=== PATIENT | female | born 1970 | race Hispanic/Latino ===

== ENCOUNTER 2017-07-21 01:23 | Inpatient (IN) | payer MEDICARE ==
[~2017-07-21] VITALS: Ht 152.4 cm; Wt 77.7 kg
[~2017-07-21 01:23] MED LIST: AMLO5TAB2 PO; CARV25TA PO; CLONIDINE PO; CYCL10TA7 PO; GLIP10TA9 PO; LORA0.5T2 PO; TRAM50TA4 PO; ZOLP10TA6 PO
[2017-07-21 01:49] LABS: BASOPHILS % (AUTO) 0.9 % (0.0-5.0); EOSINOPHILS % (AUTO) 4.7 % (0.0-8.0); HEMATOCRIT 21.4 % (36-48); MEAN CORPUSCULAR HEMOGLOBIN 35.4 pg (27.0-33.0); MEAN CORPUSCULAR HGB CONC 34.5 g/dL (32.0-36.0); MEAN CORPUSCULAR VOLUME 102.6 fL (79-99); MONOCYTES % (AUTO) 9.7 % (3.0-13.0); NEUTROPHILS % (AUTO) 69.7 % (40.0-77.0); NUCLEATED RED BLOOD CELLS 0.1 % (0.0-0.19); PLATELET COUNT (AUTO) 151 K/uL (130-400); RED BLOOD CELL COUNT(AUTO) 2.09 MIL/uL (4.00-5.50); RED CELL DISTRIBUTION WIDTH 15.7 % (11.0-15.5); WHITE BLOOD COUNT (AUTO) 9.3 K/uL (4.8-10.8)
[2017-07-21 02:02] LABS: INR 1.16 (0.85-1.15); PARTIAL THROMBOPLASTIN TIME 25.4 SEC (26.3-35.5); PROTHROMBIN TIME 12.1 SEC (9.6-11.6)
[2017-07-21 02:15] LABS: ALBUMIN 3.1 g/dL (3.5-5.0); BILIRUBIN,TOTAL 0.6 mg/dL (0.2-1.0); CREATININE 6.6 mg/dL (0.5-1.5); POTASSIUM 5.3 mmol/L (3.5-5.1); TOTAL PROTEIN, SERUM 6.8 g/dL (6.0-8.3)
[2017-07-21] MEDS ORDERED: DILTIAZEM HCL 60 MG TABLET ONE (03:12)
[2017-07-21] MEDS ORDERED: SODIUM CHLORIDE 0.9% 100 ML IV ONE ×2 (04:10→15:35)
[2017-07-21] MEDS ORDERED: SODIUM CHLORIDE 0.9% 50 ML IV ONE (04:11)
[2017-07-21] MEDS ORDERED: ACETAMINOPHEN EXTRA STRENGTH 500 MG TABLET ONE ×2 (04:27→04:29)
[2017-07-21 11:09] LABS: CREATINE KINASE MB 2.6 ng/mL (0.5-3.6); CREATINE KINASE, TOTAL 64 U/L (21-232); MYOGLOBIN 250 ng/mL (10-92); TROPONIN I < 0.04 ng/mL (0.00-0.06)
[2017-07-21] MEDS ORDERED: ACETAMINOPHEN 325 MG TAB ONE (11:31)
[2017-07-21 14:25] LABS: MEAN CORPUSCULAR HEMOGLOBIN 36.4 pg (27.0-33.0); MEAN CORPUSCULAR HGB CONC 35.4 g/dL (32.0-36.0); MEAN CORPUSCULAR VOLUME 102.9 fL (79-99); PLATELET COUNT (AUTO) 161 K/uL (130-400); RED BLOOD CELL COUNT(AUTO) 1.97 MIL/uL (4.00-5.50); RED CELL DISTRIBUTION WIDTH 16.5 % (11.0-15.5); WHITE BLOOD COUNT (AUTO) 9.1 K/uL (4.8-10.8)
[2017-07-21 14:36] LABS: HEMATOCRIT 20.3 % (36-48)
[2017-07-21 14:54] LABS: BASOPHILS % (MANUAL) 1 % (0-2); EOSINOPHILS % (MANUAL) 6 % (1-6); LYMPHOCYTES % (MANUAL) 18 % (22-44); MONOCYTES % (MANUAL) 4 % (2-9); PLATELET MORPHOLOGY COMMENT ADEQUATE; REACTIVE LYMPHOCYTES 2 % (0-0); SEGMENTED NEUTROPHILS % 69 % (40-70)
[2017-07-21 16:53] LABS: MEAN CORPUSCULAR HGB CONC 35.6 g/dL (32.0-36.0); MEAN CORPUSCULAR VOLUME 101.1 fL (79-99); PLATELET COUNT (AUTO) 153 K/uL (130-400); RED BLOOD CELL COUNT(AUTO) 1.74 MIL/uL (4.00-5.50); RED CELL DISTRIBUTION WIDTH 15.8 % (11.0-15.5); WHITE BLOOD COUNT (AUTO) 8.5 K/uL (4.8-10.8)
[2017-07-21 16:55] LABS: HEMATOCRIT 17.6 % (36-48)
[2017-07-21 17:09] LABS: BASOPHILS % (MANUAL) 1 % (0-2); EOSINOPHILS % (MANUAL) 4 % (1-6); LYMPHOCYTES % (MANUAL) 17 % (22-44); MONOCYTES % (MANUAL) 8 % (2-9); PLATELET MORPHOLOGY COMMENT ADEQUATE; SEGMENTED NEUTROPHILS % 70 % (40-70)
[2017-07-21] MEDS ORDERED: SODIUM CHLORIDE 0.9% 1000ML 1,000 ML IV ONE (18:07)
[2017-07-21 19:10] LABS: CREATINE KINASE MB 3.1 ng/mL (0.5-3.6); CREATINE KINASE, TOTAL 64 U/L (21-232); MYOGLOBIN 236 ng/mL (10-92); TROPONIN I < 0.04 ng/mL (0.00-0.06)
[2017-07-21] MEDS ORDERED: PANTOPRAZOLE SODIUM 40 MG TABLET.DR PO SCH (21:00)
[2017-07-21 22:36] VITALS: BP 158/83
[2017-07-22] VITALS (7 sets, daily range): BP systolic 132–203; BP diastolic 77–88
[2017-07-22] MEDS ORDERED: SODIUM CHLORIDE 0.9% 100 ML IV ONE (02:41)
[2017-07-22] MEDS: PANTOPRAZOLE SODIUM 80 MG in SODIUM CHLORIDE 0.9% 100 ML IV SCH ×2 (02:57→16:10)
[2017-07-22 05:02] LABS: HEMATOCRIT 24.7 % (36-48); MEAN CORPUSCULAR HEMOGLOBIN 33.5 pg (27.0-33.0); MEAN CORPUSCULAR HGB CONC 34.8 g/dL (32.0-36.0); MEAN CORPUSCULAR VOLUME 96.4 fL (79-99); NUCLEATED RED BLOOD CELLS 0.1 % (0.0-0.19); PLATELET COUNT (AUTO) 155 K/uL (130-400); RED BLOOD CELL COUNT(AUTO) 2.56 MIL/uL (4.00-5.50); WHITE BLOOD COUNT (AUTO) 7.6 K/uL (4.8-10.8)
[2017-07-22 05:29] LABS: INR 1.13 (0.85-1.15); PARTIAL THROMBOPLASTIN TIME 23.8 SEC (26.3-35.5); PROTHROMBIN TIME 11.8 SEC (9.6-11.6)
[2017-07-22 06:01] LABS: ALANINE AMINOTRANSFERASE 21 U/L (12-78); ASPARTATE AMINOTRANSFERASE 22 U/L (10-37); BILIRUBIN,TOTAL 0.6 mg/dL (0.2-1.0); CARBON DIOXIDE 30 mmol/L (21-32); CHLORIDE 100 mmol/L (101-111); CREATINE KINASE MB 2.8 ng/mL (0.5-3.6); CREATINE KINASE, TOTAL 55 U/L (21-232); CREATININE 4.5 mg/dL (0.5-1.5); GLOMERULAR FILTR. RATE CALC 11 mL/min (>60); GLUCOSE,RANDOM 175 mg/dL (70-105); MYOGLOBIN 230 ng/mL (10-92); POTASSIUM 4.1 mmol/L (3.5-5.1); SODIUM SERUM 140 mmol/L (136-145); TOTAL PROTEIN, SERUM 6.6 g/dL (6.0-8.3); TROPONIN I < 0.04 ng/mL (0.00-0.06); UREA NITROGEN, BLOOD 41 mg/dL (7-18)
[2017-07-22] MEDS ORDERED: LORAZEPAM 0.5 MG TABLET PO PRN (11:00)
[2017-07-22] MEDS ORDERED: TRAM-355 PO (11:10)
[2017-07-22] MEDS ORDERED: LORA0.5T2 PO (11:10)
[2017-07-22] MEDS ORDERED: CARV25TA PO (11:10)
[2017-07-22] MEDS ORDERED: HYDR-4153 PO (11:10)
[2017-07-22] MEDS ORDERED: GLIP5TAB11 PO (11:10)
[2017-07-22] MEDS ORDERED: PROM25TA7 PO (11:10)
[2017-07-22] MEDS ORDERED: SEVE800T7 PO (11:10)
[2017-07-22] MEDS ORDERED: APIX2.5T PO (11:10)
[2017-07-22] MEDS ORDERED: DILT360C30 PO (11:10)
[2017-07-22] MEDS ORDERED: ATOR40TA69 PO (11:10)
[2017-07-22] MEDS ORDERED: ZOLP10TA6 PO (11:10)
[2017-07-22] MEDS: SEVELAMER HCL 800 MG TABLET PO SCH ×2 (12:04→16:10)
[2017-07-22] MEDS: PROMETHAZINE HCL 25 MG TABLET PO PRN (12:04)
[2017-07-22] MEDS: HYDRALAZINE HCL 25 MG TABLET PO SCH ×2 (13:47→19:58)
[2017-07-22] MEDS: ATORVASTATIN CALCIUM 40 MG TABLET PO SCH (19:57)
[2017-07-22] MEDS: ZOLPIDEM TARTRATE 5 MG TAB PO SCH (19:57)
[2017-07-22] MEDS: CARVEDILOL 25 MG TABLET PO SCH (19:58)
[2017-07-22] MEDS ORDERED: APIXABAN 2.5 MG TABLET PO SCH (21:00)
[2017-07-23] VITALS (21 sets, daily range): BP systolic 110–159; BP diastolic 55–84
[2017-07-23] MEDS ORDERED: PROPOFOL 10 MG/ML 20ML VIAL IV ONE (08:49)
[2017-07-23] MEDS: SEVELAMER HCL 800 MG TABLET PO SCH ×3 (10:51→17:54)
[2017-07-23] MEDS: DILTIAZEM HCL 180 MG CAP.SR.24H PO SCH (10:52)
[2017-07-23] MEDS: CARVEDILOL 25 MG TABLET PO SCH ×2 (10:52→21:06)
[2017-07-23] MEDS: GLIPIZIDE 5 MG TABLET PO SCH (10:53)
[2017-07-23] MEDS: PANTOPRAZOLE SODIUM 40 MG TABLET.DR PO SCH ×2 (10:55→21:05)
[2017-07-23] MEDS: HYDRALAZINE HCL 25 MG TABLET PO SCH ×3 (10:58→21:05)
[2017-07-23] MEDS: PROMETHAZINE HCL 25 MG TABLET PO PRN (16:58)
[2017-07-23] MEDS: ATORVASTATIN CALCIUM 40 MG TABLET PO SCH (21:04)
[2017-07-23] MEDS: ZOLPIDEM TARTRATE 5 MG TAB PO SCH (21:05)
[2017-07-23] MEDS ORDERED: DEXTROSE 50%-WATER 50 ML DISP.SYRIN IV PRN (21:15)
[2017-07-23] MEDS ORDERED: GLUCAGON 1MG KIT 1 MG ML IM PRN (21:15)
[2017-07-24] VITALS (7 sets, daily range): BP systolic 105–163; BP diastolic 56–77
[2017-07-24 05:30] LABS: HEMATOCRIT 23.5 % (36-48); MEAN CORPUSCULAR HEMOGLOBIN 33.6 pg (27.0-33.0); MEAN CORPUSCULAR HGB CONC 34.2 g/dL (32.0-36.0); PLATELET COUNT (AUTO) 168 K/uL (130-400); RED CELL DISTRIBUTION WIDTH 18.1 % (11.0-15.5); WHITE BLOOD COUNT (AUTO) 7.8 K/uL (4.8-10.8)
[2017-07-24 05:42] LABS: MAGNESIUM 2.2 mg/dL (1.80-2.40); POTASSIUM 5.1 mmol/L (3.5-5.1)
[2017-07-24 05:48] LABS: CREATININE 8.3 mg/dL (0.5-1.5)
[2017-07-24] MEDS: INSULIN HUMULIN R 100 UNIT/ML 3ML SQ SCH ×4 (06:53→20:29)
[2017-07-24] MEDS: PANTOPRAZOLE SODIUM 40 MG TABLET.DR PO SCH ×2 (08:35→20:20)
[2017-07-24] MEDS: SEVELAMER HCL 800 MG TABLET PO SCH ×3 (08:35→17:29)
[2017-07-24] MEDS: GLIPIZIDE 5 MG TABLET PO SCH (08:36)
[2017-07-24] MEDS: HYDRALAZINE HCL 25 MG TABLET PO SCH ×3 (08:37→20:27)
[2017-07-24] MEDS: CARVEDILOL 25 MG TABLET PO SCH ×2 (08:37→20:21)
[2017-07-24] MEDS: DILTIAZEM HCL 180 MG CAP.SR.24H PO SCH (08:39)
[2017-07-24] MEDS ORDERED: ALBUMIN (HUMAN) 25% 100 ML IV PRN (15:30)
[2017-07-24] MEDS ORDERED: SODIUM CHLORIDE 0.9% 1000ML 1,000 ML IV PRN (15:30)
[2017-07-24] MEDS ORDERED: HEPARIN SODIUM 5000UNIT/ML 1ML VIAL IJ PRN (15:30)
[2017-07-24] MEDS ORDERED: 0.9% SODIUM CHLORIDE 250 ML IV BAG IV PRN (15:30)
[2017-07-24] MEDS: ATORVASTATIN CALCIUM 40 MG TABLET PO SCH (20:20)
[2017-07-24] MEDS: ZOLPIDEM TARTRATE 5 MG TAB PO SCH (20:20)
[2017-07-25 04:00] VITALS: BP 130/72
[2017-07-25 04:11] LABS: HEMATOCRIT 22.2 % (36-48); MEAN CORPUSCULAR HEMOGLOBIN 33.6 pg (27.0-33.0); MEAN CORPUSCULAR HGB CONC 33.9 g/dL (32.0-36.0); MEAN CORPUSCULAR VOLUME 98.9 fL (79-99); NUCLEATED RED BLOOD CELLS 0.1 % (0.0-0.19); PLATELET COUNT (AUTO) 147 K/uL (130-400); RED BLOOD CELL COUNT(AUTO) 2.24 MIL/uL (4.00-5.50); RED CELL DISTRIBUTION WIDTH 18.4 % (11.0-15.5); WHITE BLOOD COUNT (AUTO) 7.1 K/uL (4.8-10.8)
[2017-07-25] MEDS: INSULIN HUMULIN R 100 UNIT/ML 3ML SQ SCH ×4 (06:33→20:43)
[2017-07-25 08:03] VITALS: BP 128/63
[2017-07-25] MEDS: SEVELAMER HCL 800 MG TABLET PO SCH ×3 (08:30→16:56)
[2017-07-25] MEDS: PANTOPRAZOLE SODIUM 40 MG TABLET.DR PO SCH ×2 (08:31→20:41)
[2017-07-25] MEDS: CARVEDILOL 25 MG TABLET PO SCH ×2 (08:31→20:42)
[2017-07-25] MEDS: HYDRALAZINE HCL 25 MG TABLET PO SCH ×3 (08:31→20:42)
[2017-07-25] MEDS: DILTIAZEM HCL 180 MG CAP.SR.24H PO SCH (08:32)
[2017-07-25] MEDS: GLIPIZIDE 5 MG TABLET PO SCH (08:32)
[2017-07-25] MEDS: TRAMADOL /APAP 37.5MG/325MG TAB PO PRN ×2 (11:10→23:05)
[2017-07-25 11:39] VITALS: BP 144/61
[2017-07-25] MEDS ORDERED: VANCOMYCIN PROTOCOL PER PHARMACY IV SCH (14:45)
[2017-07-25] MEDS ORDERED: KETOROLAC TROMETHAMINE 15MG/ML IV SCH (14:50)
[2017-07-25 15:29] VITALS: BP 130/70
[2017-07-25] MEDS ORDERED: COMPOUND IV REFRIGERATED 1 EACH IVSOLN MISC PRN (16:15)
[2017-07-25] MEDS ORDERED: VANCOMYCIN 1GM+NS 250ML 250 ML IV SCH (16:15)
[2017-07-25] MEDS: CYANOCOBALAMIN (VITAMIN B-12) 1,000 MCG TABLET PO SCH (16:56)
[2017-07-25] MEDS: AMOXICILLIN/POTASSIUM CLAV 500-125 TABLET PO SCH ×2 (17:02→20:41)
[2017-07-25 19:00] VITALS: BP 95/54
[2017-07-25] MEDS: ATORVASTATIN CALCIUM 40 MG TABLET PO SCH (20:41)
[2017-07-25] MEDS: ZOLPIDEM TARTRATE 5 MG TAB PO SCH (20:41)
[2017-07-25 23:00] VITALS: BP 115/56
[2017-07-26 03:00] VITALS: BP 119/63
[2017-07-26 03:56] LABS: HEMATOCRIT 22.2 % (36-48); MEAN CORPUSCULAR HEMOGLOBIN 33.6 pg (27.0-33.0); MEAN CORPUSCULAR HGB CONC 33.8 g/dL (32.0-36.0); MEAN CORPUSCULAR VOLUME 99.6 fL (79-99); PLATELET COUNT (AUTO) 151 K/uL (130-400); RED BLOOD CELL COUNT(AUTO) 2.23 MIL/uL (4.00-5.50); RED CELL DISTRIBUTION WIDTH 18.4 % (11.0-15.5); WHITE BLOOD COUNT (AUTO) 7.3 K/uL (4.8-10.8)
[2017-07-26 04:14] LABS: CRP QUANTITATIVE 34.2 mg/L (0.00-9.0); MAGNESIUM 2.3 mg/dL (1.80-2.40)
[2017-07-26 05:14] LABS: ERYTHROCYTE SEDIMENTATION RATE 55 MM/HR (0-15)
[2017-07-26] MEDS: INSULIN HUMULIN R 100 UNIT/ML 3ML SQ SCH ×4 (05:40→20:55)
[2017-07-26 07:57] VITALS: BP 124/59
[2017-07-26] MEDS: AMOXICILLIN/POTASSIUM CLAV 500-125 TABLET PO SCH ×2 (08:37→21:06)
[2017-07-26] MEDS: SEVELAMER HCL 800 MG TABLET PO SCH ×3 (08:38→16:37)
[2017-07-26] MEDS: FERROUS SULFATE 325 MG TABLET.DR PO SCH (08:39)
[2017-07-26] MEDS: DILTIAZEM HCL 180 MG CAP.SR.24H PO SCH (08:39)
[2017-07-26] MEDS: FOLIC ACID 1 MG TABLET PO SCH (08:39)
[2017-07-26] MEDS: GLIPIZIDE 5 MG TABLET PO SCH (08:39)
[2017-07-26] MEDS: CYANOCOBALAMIN (VITAMIN B-12) 1,000 MCG TABLET PO SCH (08:39)
[2017-07-26] MEDS: CARVEDILOL 25 MG TABLET PO SCH ×2 (09:00→20:53)
[2017-07-26 11:09] VITALS: BP 139/70
[2017-07-26] MEDS: TRAMADOL /APAP 37.5MG/325MG TAB PO PRN ×2 (14:08→20:52)
[2017-07-26] MEDS: PANTOPRAZOLE SODIUM 40 MG TABLET.DR PO SCH ×2 (14:12→20:52)
[2017-07-26] MEDS: HYDRALAZINE HCL 25 MG TABLET PO SCH ×3 (14:13→20:51)
[2017-07-26] MEDS ORDERED: VANCOMYCIN 750MG + NS 250 ML IV SCH ×2 (16:15)
[2017-07-26 16:22] VITALS: BP 135/95
[2017-07-26 19:00] VITALS: BP 130/58
[2017-07-26] MEDS: ZOLPIDEM TARTRATE 5 MG TAB PO SCH (20:51)
[2017-07-26] MEDS: ATORVASTATIN CALCIUM 40 MG TABLET PO SCH (20:51)
[2017-07-26 23:00] VITALS: BP 108/53
[2017-07-27 03:00] VITALS: BP 100/52
[2017-07-27] MEDS: INSULIN HUMULIN R 100 UNIT/ML 3ML SQ SCH ×4 (05:48→20:36)
[2017-07-27 07:00] VITALS: BP 115/67
[2017-07-27] MEDS: SEVELAMER HCL 800 MG TABLET PO SCH ×3 (08:05→16:23)
[2017-07-27] MEDS: DILTIAZEM HCL 180 MG CAP.SR.24H PO SCH (08:06)
[2017-07-27] MEDS: HYDRALAZINE HCL 25 MG TABLET PO SCH ×3 (08:07→20:33)
[2017-07-27] MEDS: FERROUS SULFATE 325 MG TABLET.DR PO SCH (08:07)
[2017-07-27] MEDS: GLIPIZIDE 5 MG TABLET PO SCH (08:07)
[2017-07-27] MEDS: AMOXICILLIN/POTASSIUM CLAV 500-125 TABLET PO SCH ×2 (08:07→20:33)
[2017-07-27] MEDS: CYANOCOBALAMIN (VITAMIN B-12) 1,000 MCG TABLET PO SCH (08:08)
[2017-07-27] MEDS: FOLIC ACID 1 MG TABLET PO SCH (08:08)
[2017-07-27] MEDS: CARVEDILOL 25 MG TABLET PO SCH ×2 (08:08→20:34)
[2017-07-27] MEDS: PANTOPRAZOLE SODIUM 40 MG TABLET.DR PO SCH ×2 (08:08→20:34)
[2017-07-27] MEDS: TRAMADOL /APAP 37.5MG/325MG TAB PO PRN ×3 (08:17→20:33)
[2017-07-27 11:00] VITALS: BP 120/63
[2017-07-27 16:00] VITALS: BP 129/69
[2017-07-27 19:30] VITALS: BP 120/60
[2017-07-27] MEDS: ZOLPIDEM TARTRATE 5 MG TAB PO SCH (20:33)
[2017-07-27] MEDS: ATORVASTATIN CALCIUM 40 MG TABLET PO SCH (20:34)
[2017-07-27 23:15] VITALS: BP 117/57
[2017-07-28 03:05] VITALS: BP 115/62
[2017-07-28] MEDS: TRAMADOL /APAP 37.5MG/325MG TAB PO PRN ×4 (04:06→21:09)
[2017-07-28 04:10] LABS: HEMATOCRIT 24.1 % (36-48); MEAN CORPUSCULAR HEMOGLOBIN 33.2 pg (27.0-33.0); MEAN CORPUSCULAR HGB CONC 34.3 g/dL (32.0-36.0); MEAN CORPUSCULAR VOLUME 96.5 fL (79-99); PLATELET COUNT (AUTO) 169 K/uL (130-400); RED CELL DISTRIBUTION WIDTH 18.3 % (11.0-15.5); WHITE BLOOD COUNT (AUTO) 6.6 K/uL (4.8-10.8)
[2017-07-28 04:20] LABS: CREATININE 7.3 mg/dL (0.5-1.5); MAGNESIUM 2.3 mg/dL (1.80-2.40)
[2017-07-28] MEDS: INSULIN HUMULIN R 100 UNIT/ML 3ML SQ SCH ×4 (06:10→21:00)
[2017-07-28 07:00] VITALS: BP 140/76
[2017-07-28] MEDS: SEVELAMER HCL 800 MG TABLET PO SCH ×3 (08:00→16:29)
[2017-07-28] MEDS: HYDRALAZINE HCL 25 MG TABLET PO SCH ×3 (09:00→21:06)
[2017-07-28 11:00] VITALS: BP 171/81
[2017-07-28] MEDS: AMOXICILLIN/POTASSIUM CLAV 500-125 TABLET PO SCH ×2 (12:16→21:06)
[2017-07-28] MEDS: FOLIC ACID 1 MG TABLET PO SCH (12:27)
[2017-07-28] MEDS: GLIPIZIDE 5 MG TABLET PO SCH (12:27)
[2017-07-28] MEDS: CYANOCOBALAMIN (VITAMIN B-12) 1,000 MCG TABLET PO SCH (12:27)
[2017-07-28] MEDS: PANTOPRAZOLE SODIUM 40 MG TABLET.DR PO SCH ×2 (12:27→21:07)
[2017-07-28] MEDS: FERROUS SULFATE 325 MG TABLET.DR PO SCH (12:27)
[2017-07-28] MEDS: DILTIAZEM HCL 180 MG CAP.SR.24H PO SCH (12:28)
[2017-07-28] MEDS: CARVEDILOL 25 MG TABLET PO SCH ×3 (12:28→21:07)
[2017-07-28] MEDS ORDERED: VANCOMYCIN 750MG + NS 250 ML IV SCH ×2 (14:00)
[2017-07-28 16:00] VITALS: BP 129/80
[2017-07-28] MEDS: HONEY 1 APPL/ML TUBE TP SCH (17:44)
[2017-07-28 20:00] VITALS: BP 115/55
[2017-07-28] MEDS: ZOLPIDEM TARTRATE 5 MG TAB PO SCH (21:06)
[2017-07-28] MEDS: ATORVASTATIN CALCIUM 40 MG TABLET PO SCH (21:07)
[2017-07-29] VITALS: BP 150/68
[2017-07-29] MEDS: TRAMADOL /APAP 37.5MG/325MG TAB PO PRN ×3 (02:42→21:59)
[2017-07-29 04:00] VITALS: BP 128/70
[2017-07-29] MEDS: INSULIN HUMULIN R 100 UNIT/ML 3ML SQ SCH ×4 (06:31→21:00)
[2017-07-29 07:00] VITALS: BP 137/72
[2017-07-29] MEDS: FOLIC ACID 1 MG TABLET PO SCH (08:42)
[2017-07-29] MEDS: FERROUS SULFATE 325 MG TABLET.DR PO SCH (08:42)
[2017-07-29] MEDS: AMOXICILLIN/POTASSIUM CLAV 500-125 TABLET PO SCH ×2 (08:42→22:02)
[2017-07-29] MEDS: CYANOCOBALAMIN (VITAMIN B-12) 1,000 MCG TABLET PO SCH (08:42)
[2017-07-29] MEDS: SEVELAMER HCL 800 MG TABLET PO SCH ×3 (08:42→17:58)
[2017-07-29] MEDS: HYDRALAZINE HCL 25 MG TABLET PO SCH ×3 (08:43→21:58)
[2017-07-29] MEDS: PANTOPRAZOLE SODIUM 40 MG TABLET.DR PO SCH ×2 (08:43→21:55)
[2017-07-29] MEDS: DILTIAZEM HCL 180 MG CAP.SR.24H PO SCH (08:43)
[2017-07-29] MEDS: CARVEDILOL 25 MG TABLET PO SCH ×2 (08:44→21:58)
[2017-07-29] MEDS: HONEY 1 APPL/ML TUBE TP SCH (08:44)
[2017-07-29] MEDS: GLIPIZIDE 5 MG TABLET PO SCH (08:44)
[2017-07-29 12:00] VITALS: BP 150/72
[2017-07-29 16:00] VITALS: BP 118/61
[2017-07-29 20:00] VITALS: BP 140/70
[2017-07-29] MEDS: ATORVASTATIN CALCIUM 40 MG TABLET PO SCH (21:55)
[2017-07-29] MEDS: ZOLPIDEM TARTRATE 5 MG TAB PO SCH (21:55)
[2017-07-30] VITALS: BP 128/64
[2017-07-30 04:00] VITALS: BP 118/56
[2017-07-30] MEDS: TRAMADOL /APAP 37.5MG/325MG TAB PO PRN ×2 (04:58→13:24)
[2017-07-30] MEDS: INSULIN HUMULIN R 100 UNIT/ML 3ML SQ SCH ×3 (06:11→16:30)
[2017-07-30 08:00] VITALS: BP 135/72
[2017-07-30] MEDS: HONEY 1 APPL/ML TUBE TP SCH (09:00)
[2017-07-30] MEDS: AMOXICILLIN/POTASSIUM CLAV 500-125 TABLET PO SCH (09:00)
[2017-07-30] MEDS: CARVEDILOL 25 MG TABLET PO SCH (10:03)
[2017-07-30] MEDS: HYDRALAZINE HCL 25 MG TABLET PO SCH ×2 (10:03→13:26)
[2017-07-30] MEDS: GLIPIZIDE 5 MG TABLET PO SCH (10:03)
[2017-07-30] MEDS: FERROUS SULFATE 325 MG TABLET.DR PO SCH (10:03)
[2017-07-30] MEDS: FOLIC ACID 1 MG TABLET PO SCH (10:03)
[2017-07-30] MEDS: CYANOCOBALAMIN (VITAMIN B-12) 1,000 MCG TABLET PO SCH (10:03)
[2017-07-30] MEDS: DILTIAZEM HCL 180 MG CAP.SR.24H PO SCH (10:04)
[2017-07-30] MEDS: PANTOPRAZOLE SODIUM 40 MG TABLET.DR PO SCH (10:04)
[2017-07-30] MEDS: SEVELAMER HCL 800 MG TABLET PO SCH ×3 (10:06→16:48)
[2017-07-30 12:00] VITALS: BP 144/76
[2017-07-30] MEDS ORDERED: AMOXICILLIN/POTASSIUM CLAV 500-125 TABLET PO ONE (13:15)
[2017-07-30 16:00] VITALS: BP 140/66
== END 2017-07-30 17:20 | disposition home or self-care (01) | DRG 377 ==
LOC: EDH 01:23 → EDHIP 04:52 → 3BH 22:45
PROVIDERS: ADMIT Internal Medicine Infectious Disease; ATTEND Internal Medicine Infectious Disease
PROC: 5A1D70Z Performance of Urinary Filtration, Intermittent, Less than 6 Hours Per Day (ICD-10-PCS; 2016-07-25)
PROC: 5A1D70Z Performance of Urinary Filtration, Intermittent, Less than 6 Hours Per Day (ICD-10-PCS; 2017-07-21)
PROC: 30233N1 Transfusion of Nonautologous Red Blood Cells into Peripheral Vein, Percutaneous Approach (ICD-10-PCS; 2017-07-21)
PROC: 0DB68ZX Excision of Stomach, Via Natural or Artificial Opening Endoscopic, Diagnostic (ICD-10-PCS; principal; 2017-07-23)
PROC: 5A1D70Z Performance of Urinary Filtration, Intermittent, Less than 6 Hours Per Day (ICD-10-PCS; 2017-07-26)
PROC: 5A1D70Z Performance of Urinary Filtration, Intermittent, Less than 6 Hours Per Day (ICD-10-PCS; 2017-07-28)
DX: K25.4 Chronic or unspecified gastric ulcer with hemorrhage (principal); N18.6 End stage renal disease; E11.43 Type 2 diabetes mellitus with diabetic autonomic (poly)neuropathy; E11.21 Type 2 diabetes mellitus with diabetic nephropathy; K31.84 Gastroparesis; I48.91 Unspecified atrial fibrillation; E11.22 Type 2 diabetes mellitus with diabetic chronic kidney disease; I48.92 Unspecified atrial flutter; E11.622 Type 2 diabetes mellitus with other skin ulcer; I12.0 Hypertensive chronic kidney disease with stage 5 chronic kidney disease or end stage renal disease; D62 Acute posthemorrhagic anemia; L03.115 Cellulitis of right lower limb; L97.919 Non-pressure chronic ulcer of unspecified part of right lower leg with unspecified severity; T39.395A Adverse effect of other nonsteroidal anti-inflammatory drugs [NSAID], initial encounter; K92.1 Melena; D63.8 Anemia in other chronic diseases classified elsewhere; Z79.01 Long term (current) use of anticoagulants; Z99.2 Dependence on renal dialysis; G89.29 Other chronic pain; K29.70 Gastritis, unspecified, without bleeding; R56.9 Unspecified convulsions; Z74.01 Bed confinement status; Z83.3 Family history of diabetes mellitus; Z90.710 Acquired absence of both cervix and uterus; W54.0XXA Bitten by dog, initial encounter; Z90.49 Acquired absence of other specified parts of digestive tract
CPT/HCPCS: 36415; 71045; 73218; 80048; 80053; 80202; 82270; 82550; 82553; 82947; 82948; 83735; 83874; 84484; 85025; 85027; 85610; 85651; 85730; 86140; 86850; 86870; 86900; 86901; 86905; 86922; 88305; 88312; 88342; 90935; 93005; C9113; J1815; J1885; J2704; J3370; J7030; J7070; P9016; Q0169

== ENCOUNTER 2017-08-03 20:02 | Emergency (ER) | payer MEDICARE ==
[~2017-08-03 20:02] MED LIST changes: -AMLO5TAB2 PO; +APIX2.5T PO; +ATOR40TA69 PO; -CLONIDINE PO; -CYCL10TA7 PO; +DILT360C30 PO; -GLIP10TA9 PO; +GLIP5TAB11 PO; +HYDR-4153 PO; +PROM25TA7 PO; +SEVE800T7 PO; +TRAM-355 PO; -TRAM50TA4 PO
[2017-08-03 20:29] LABS: EOSINOPHILS % (AUTO) 5.5 % (0.0-8.0); HEMATOCRIT 25.9 % (36-48); LYMPHOCYTES % (AUTO) 15.2 % (21.0-51.0); MEAN CORPUSCULAR HEMOGLOBIN 32.2 pg (27.0-33.0); MEAN CORPUSCULAR HGB CONC 33.1 g/dL (32.0-36.0); MEAN CORPUSCULAR VOLUME 97.3 fL (79-99); MONOCYTES % (AUTO) 10.1 % (3.0-13.0); NEUTROPHILS % (AUTO) 68.2 % (40.0-77.0); PLATELET COUNT (AUTO) 257 K/uL (130-400); RED BLOOD CELL COUNT(AUTO) 2.66 MIL/uL (4.00-5.50); RED CELL DISTRIBUTION WIDTH 17.9 % (11.0-15.5); WHITE BLOOD COUNT (AUTO) 7.2 K/uL (4.8-10.8)
[2017-08-03 20:55] LABS: CREATININE 5.7 mg/dL (0.5-1.5); POTASSIUM 4.7 mmol/L (3.5-5.1)
[2017-08-03 20:56] LABS: INR 1.16 (0.85-1.15); PARTIAL THROMBOPLASTIN TIME 26.8 SEC (26.3-35.5); PROTHROMBIN TIME 12.1 SEC (9.6-11.6)
[2017-08-03 21:08] LABS: ALBUMIN 3.1 g/dL (3.5-5.0); BILIRUBIN,TOTAL 0.5 mg/dL (0.2-1.0); CREATINE KINASE MB 1.5 ng/mL (0.5-3.6); TOTAL PROTEIN, SERUM 7.2 g/dL (6.0-8.3)
[2017-08-03] MEDS ORDERED: ASPIRIN 325MG EC TAB 325 MG TABLET.DR PO ONE (22:38)
== END 2017-08-03 23:01 | disposition home or self-care (01) ==
LOC: EDH 20:02
DX: R07.1 Chest pain on breathing (principal); I13.2 Hypertensive heart and chronic kidney disease with heart failure and with stage 5 chronic kidney disease, or end stage renal disease; E11.22 Type 2 diabetes mellitus with diabetic chronic kidney disease; N18.6 End stage renal disease; I50.9 Heart failure, unspecified; I48.91 Unspecified atrial fibrillation; Z88.1 Allergy status to other antibiotic agents; Z88.6 Allergy status to analgesic agent; Z90.710 Acquired absence of both cervix and uterus; Z99.2 Dependence on renal dialysis
CPT/HCPCS: 36415; 71045; 80053; 82550; 82553; 83874; 84484; 85025; 85610; 85730; 93005

== ENCOUNTER 2018-01-12 21:13 | Inpatient (IN) | payer MEDICARE ==
[~2018-01-12] VITALS: Ht 152.4 cm; Wt 77.7 kg
[2018-01-12] MEDS ORDERED: IPRATROPIUM/ALBUTEROL SULFATE 3 ML SOLUTION IH ONE (21:42)
[2018-01-12] MEDS ORDERED: FUROSEMIDE 10 MG/ML 4ML VIAL ONE (21:48)
[2018-01-12 21:56] LABS: BASOPHILS % (AUTO) 0.3 % (0.0-5.0); EOSINOPHILS % (AUTO) 7.8 % (0.0-8.0); LYMPHOCYTES % (AUTO) 15.4 % (21.0-51.0); MEAN CORPUSCULAR HEMOGLOBIN 30.9 pg (27.0-33.0); MEAN CORPUSCULAR HGB CONC 33.5 g/dL (32.0-36.0); MEAN CORPUSCULAR VOLUME 92.4 fL (79-99); MONOCYTES % (AUTO) 6.9 % (3.0-13.0); NEUTROPHILS % (AUTO) 69.6 % (40.0-77.0); PLATELET COUNT (AUTO) 273 K/uL (130-400); WHITE BLOOD COUNT (AUTO) 5.7 K/uL (4.8-10.8)
[2018-01-12 22:29] LABS: ALBUMIN 2.6 g/dL (3.5-5.0); BILIRUBIN,TOTAL 0.6 mg/dL (0.2-1.0); CREATINE KINASE MB 3.2 ng/mL (0.5-3.6); CREATININE 4.6 mg/dL (0.5-1.5); TOTAL PROTEIN, SERUM 7.4 g/dL (6.0-8.3)
[2018-01-12 22:35] LABS: POTASSIUM 3.7 mmol/L (3.5-5.1)
[2018-01-13] MEDS ORDERED: HYDROMORPHONE 1 MG/1 ML AMP ONE (00:14)
[2018-01-13] MEDS ORDERED: CLONIDINE HCL 0.1 MG TABLET ONE (01:00)
[2018-01-13 03:18] VITALS: BP 171/98
[2018-01-13] MEDS ORDERED: TRAMADOL HCL 50 MG TABLET ONE (04:43)
[2018-01-13 07:53] VITALS: BP 173/91
[2018-01-13] MEDS ORDERED: PROMETHAZINE HCL 25 MG TABLET PO PRN (08:45)
[2018-01-13] MEDS ORDERED: LORAZEPAM 0.5 MG TABLET PO PRN (08:45)
[2018-01-13] MEDS: TRAMADOL /APAP 37.5MG/325MG TAB PO PRN ×2 (09:29→21:15)
[2018-01-13] MEDS: HYDRALAZINE HCL 25 MG TABLET PO SCH ×3 (09:29→21:15)
[2018-01-13] MEDS: GLIPIZIDE 5 MG TABLET PO SCH (09:29)
[2018-01-13] MEDS: DILTIAZEM HCL 180 MG CAP.SR.24H PO SCH (09:30)
[2018-01-13] MEDS: CARVEDILOL 25 MG TABLET PO SCH ×2 (09:31→21:14)
[2018-01-13 11:00] VITALS: BP 147/86
[2018-01-13] MEDS: SEVELAMER HCL 800 MG TABLET PO SCH ×2 (12:04→18:02)
[2018-01-13] MEDS ORDERED: HYDROMORPHONE HCL 2 MG TAB PO PRN (14:00)
[2018-01-13 14:16] LABS: INR 1.14 (0.85-1.15); PARTIAL THROMBOPLASTIN TIME 32.2 SEC (26.3-35.5); PROTHROMBIN TIME 11.9 SEC (9.6-11.6)
[2018-01-13 14:40] LABS: CREATINE KINASE MB 2.8 ng/mL (0.5-3.6); CREATINE KINASE, TOTAL 58 U/L (21-232); MYOGLOBIN 170 ng/mL (10-92); TROPONIN I < 0.04 ng/mL (0.00-0.06)
[2018-01-13 16:00] VITALS: BP 141/79
[2018-01-13 19:25] VITALS: BP 142/81
[2018-01-13] MEDS ORDERED: ZOLPIDEM TARTRATE 5 MG TAB PO SCH (21:00)
[2018-01-14] VITALS (12 sets, daily range): BP systolic 136–169; BP diastolic 70–85
[2018-01-14 05:34] LABS: MEAN CORPUSCULAR HEMOGLOBIN 30.6 pg (27.0-33.0); MEAN CORPUSCULAR VOLUME 92.8 fL (79-99); PLATELET COUNT (AUTO) 233 K/uL (130-400); RED BLOOD CELL COUNT(AUTO) 2.59 MIL/uL (4.00-5.50); RED CELL DISTRIBUTION WIDTH 19.4 % (11.0-15.5); WHITE BLOOD COUNT (AUTO) 4.8 K/uL (4.8-10.8)
[2018-01-14 05:45] LABS: CREATININE 6.1 mg/dL (0.5-1.5); PHOSPHORUS 7.9 mg/dL (2.5-4.9); POTASSIUM 4.1 mmol/L (3.5-5.1)
[2018-01-14] MEDS: SEVELAMER HCL 800 MG TABLET PO SCH ×2 (08:00→12:00)
[2018-01-14] MEDS: DILTIAZEM HCL 180 MG CAP.SR.24H PO SCH (09:00)
[2018-01-14] MEDS ORDERED: FOLIC ACID/VITAMIN B COMP W-C 1 MG CAPSULE PO SCH (09:00)
[2018-01-14] MEDS ORDERED: HEPARIN SODIUM 5000UNIT/ML 1ML VIAL SQ SCH (09:00)
[2018-01-14] MEDS: CARVEDILOL 25 MG TABLET PO SCH (09:00)
[2018-01-14] MEDS: HYDRALAZINE HCL 25 MG TABLET PO SCH ×2 (09:00→14:00)
[2018-01-14] MEDS: GLIPIZIDE 5 MG TABLET PO SCH (09:00)
[2018-01-14] MEDS ORDERED: LIDOCAINE HCL MPF 1% 5ML VIAL ONE (11:01)
[2018-01-14] MEDS ORDERED: 0.9% SODIUM CHLORIDE 250 ML IV BAG IV PRN (11:30)
[2018-01-14] MEDS ORDERED: ALBUMIN (HUMAN) 25% 100 ML IV PRN (11:30)
[2018-01-14] MEDS ORDERED: SODIUM CHLORIDE 0.9% 1000ML 1,000 ML IV PRN (11:30)
[2018-01-14] MEDS: TRAMADOL /APAP 37.5MG/325MG TAB PO PRN (14:42)
== END 2018-01-14 18:35 | disposition home or self-care (01) | DRG 304 ==
LOC: EDH 21:13 → EDHIP 01-13 02:20 → 4BH 01-13 03:18 → 3BH 01-13 09:13
PROVIDERS: ADMIT Internal Medicine Critical Care Medicine; ATTEND Internal Medicine Critical Care Medicine
PROC: 0W9B3ZZ Drainage of Left Pleural Cavity, Percutaneous Approach (ICD-10-PCS; principal; 2018-01-14)
PROC: 5A1D70Z Performance of Urinary Filtration, Intermittent, Less than 6 Hours Per Day (ICD-10-PCS; 2018-01-14)
DX: I16.1 Hypertensive emergency (principal); N18.6 End stage renal disease; J90 Pleural effusion, not elsewhere classified; L03.119 Cellulitis of unspecified part of limb; I12.0 Hypertensive chronic kidney disease with stage 5 chronic kidney disease or end stage renal disease; E87.70 Fluid overload, unspecified; Z99.2 Dependence on renal dialysis; E11.22 Type 2 diabetes mellitus with diabetic chronic kidney disease; D63.8 Anemia in other chronic diseases classified elsewhere; E11.21 Type 2 diabetes mellitus with diabetic nephropathy; I48.2 Chronic atrial fibrillation; Z79.01 Long term (current) use of anticoagulants; E11.51 Type 2 diabetes mellitus with diabetic peripheral angiopathy without gangrene; G89.29 Other chronic pain; Z90.710 Acquired absence of both cervix and uterus; Z83.3 Family history of diabetes mellitus; E78.5 Hyperlipidemia, unspecified; Z91.19 Patient's noncompliance with other medical treatment and regimen
CPT/HCPCS: 32555; 36415; 71045; 80048; 80053; 82270; 82550; 82553; 82728; 82948; 83874; 83880; 84100; 84484; 85025; 85027; 85610; 85730; 93005; 94640; 99291; J1170; J1940; J3490